=== PATIENT | male | born 2005 | race Hispanic/Latino ===

== ENCOUNTER 2024-09-19 12:20 | Emergency (ER) | payer OTHER ==
[~2024-09-19] VITALS: Ht 177.8 cm; Wt 85.2 kg
[2024-09-19] MEDS: ACETAMINOPHEN 500 MG TAB PO ONE (15:22)
[2024-09-19 15:27] VITALS: BP 129/75; TEMP 97; O2SAT 100
== END 2024-09-19 15:29 | disposition home or self-care (01) ==
LOC: M ED 14:53
DX: R05.9 Cough, unspecified (principal); B34.9 Viral infection, unspecified